=== PATIENT | male | born 1955 | race Caucasian/White ===

== ENCOUNTER 2019-05-30 16:28 | Emergency (ER) | payer OTHER ==
[~2019-05-30] VITALS: Ht 190.5 cm; Wt 118.8 kg
--- NOTE | 2019-05-30 19:50 | NUR ---
PT BROUGHT TO RM 3 AT THIS TIME. PT PLACED ON BEDSIDE WELDER GAS AUT[employer]IC, SPO2 AND BP CUFF. PT DENIES CP OR SOB AT THIS TIME. NO ACUTE DISTRESS NOTED. PT PLACED IN GOWN. BED IS LOCKED AND LOWEST POSITION. CALL LIGHT IN REACH IF IN NEED OF ASSISTANCE.
[2019-05-30] MEDS ORDERED: LISINOPRIL40 MG PO (20:03)
[2019-05-30] MEDS ORDERED: HYDROCODON-ACE1 EAC9 PO (20:03)
[2019-05-30] MEDS ORDERED: ESZOPICLONE3 MG PO (20:03)
[2019-05-30] MEDS ORDERED: AMLODIPINE BESY10 MG PO (20:03)
[2019-05-30] MEDS ORDERED: DOXAZOSIN MESYLA2 MG PO (20:03)
[2019-05-30] MEDS ORDERED: ALPRAZOLAM0.5 MG PO (20:03)
[2019-05-30] MEDS ORDERED: BUPROPION HCL150 M2 PO (20:03)
[2019-05-30] MEDS ORDERED: SUCRALFATE1 GM PO (20:03)
[2019-05-30] MEDS ORDERED: PANTOPRAZOLE SO40 MG PO (20:03)
[2019-05-30] MEDS ORDERED: PREGABALIN100 MG PO (20:03)
[2019-05-30] MEDS ORDERED: METOPROLOL SUC100 MG PO (20:03)
[2019-05-30] MEDS ORDERED: PRAVASTATIN SOD40 MG PO (20:03)
[2019-05-30 20:48] LABS: BASOPHILS # (AUTO) 0.1 (0.0-0.1); BASOPHILS % 0.8 % (0.0-1.0); EOSINOPHILS # (AUTO) 0.4 (0.0-0.4); EOSINOPHILS % 5.5 % (0.0-6.0); HEMATOCRIT 37.3 % (38.2-49.6); HEMOGLOBIN 12.3 g/dL (14.0-18.0); LYMPHOCYTES # (AUTO) 1.9 (1.0-3.2); LYMPHOCYTES % 26.1 % (18.0-39.1); MEAN CORPUSCULAR HEMOGLOBIN 28.9 pg (28-32); MEAN CORPUSCULAR VOLUME 87.6 fL (81-99); MONOCYTES # (AUTO) 0.6 (0.2-0.8); MONOCYTES % 8.4 % (4.4-11.3); NEUTROPHILS # (AUTO) 4.2 (2.1-6.9); NEUTROPHILS % 58.6 % (38.7-80.0); PLATELET COUNT 204 x10e3/uL (140-360); RED BLOOD COUNT 4.26 x10e6/uL (4.3-5.7); RED CELL DISTRIBUTION WIDTH 13.5 % (11.7-14.4)
--- NOTE | 2019-05-30 21:10 | NUR ---
PHOTOVOLTAIC TESTING TECHNICIAN AT BEDSIDE AT THIS TIME FOR VENOUS DOPPLER.
[2019-05-30 21:11] LABS: ALANINE AMINOTRANSFERASE 20 IU/L (0-55); ALBUMIN 4.1 g/dL (3.5-5.0); ALBUMIN/GLOBULIN RATIO 1.2 (0.8-2.0); ALKALINE PHOSPHATASE 96 IU/L (40-150); ANION GAP 10.5 mmol/L (8-16); BLOOD UREA NITROGEN 17 mg/dL (7-26); BUN/CREATININE RATIO 16 (6-25); CALCIUM 9.4 mg/dL (8.4-10.2); CARBON DIOXIDE 29 mmol/L (22-29); CHLORIDE 104 mmol/L (98-107); CREATINE KINASE 75 IU/L (30-200); CREATININE, SERUM 1.05 mg/dL (0.72-1.25); EST GLOMERULAR FILTRATION RATE > 60 ML/MIN (60-); GLUCOSE 85 mg/dL (74-118); POTASSIUM 3.5 mmol/L (3.5-5.1); SODIUM 140 mmol/L (136-145)
[2019-05-30] MEDS ORDERED: SODIUM CHLORIDE 0.9% 50ML 0 ML ONE (21:28)
[2019-05-30] MEDS ORDERED: IOPAMIDOL 370 MG/ML 200 ML INFUS..BTL INJ ONE ×2 (21:29→22:35)
--- NOTE | 2019-05-30 22:08 | Diagnostic Imaging Report ---
EXAM: CT Chest WITH contrast- Pulmonary Embolism Protocol INDICATION: Shortness of breath. Leg swelling bilaterally. COMPARISON: None TECHNIQUE: Chest was scanned utilizing a multidetector helical scanner from the lung apex through the level of the diaphragm after administration of IV contrast. Thin section reconstructions were obtained with special concentration on the pulmonary arteries. Coronal and sagittal reformations were obtained. Pulmonary embolism protocol was performed. IV CONTRAST: 100 cc of Isovue 370 RADIATION DOSE: Total DLP: 659.8 mGy*cm Dose modulation, iterative reconstruction, and/or weight based adjustment of the mA/kV was utilized to reduce the radiation dose to as low as reasonably achievable. COMPLICATIONS: None FINDINGS: LINES/ TUBES: None. PULMONARY ARTERIES: No filling defect is identified within the pulmonary arteries to the segmental level. The subsegmental pulmonary arteries are not well opacified. Main pulmonary artery measures 2.8 cm in diameter. LUNGS AND AIRWAYS: The central airways are patent. Patchy opacities in the lower lobes, likely atelectasis. Mild biapical pleural-parenchymal opacity. A 4 mm triangular right minor fissural nodule on series 3, image 74, likely an intrafissural lymph node. PLEURA: Small bilateral pleural effusions. No pneumothorax. HEART AND MEDIASTINUM: The thyroid gland is normal. Prominent mediastinal lymph nodes including a 0.9 cm paratracheal lymph node on series 2, image 40, a 1.3 cm paratracheal lymph node on image 56, a right peribronchial lymph node, measuring up to 1.4 cm on image 65, and a right supraclavicular lymph nodes node, measuring up to 1.1 cm on image 12, The heart is normal in size.. There is no pericardial effusion. Mitral annular calcifications. Scattered coronary atherosclerosis. UPPER ABDOMEN: Limited contrast-enhanced views of the upper abdomen. Reflux of contrast into the IVC, which may represent right heart dysfunction. BONES: No acute osseous abnormality. No suspicious lytic or blastic lesions. SOFT TISSUES: Unremarkable. IMPRESSION: No evidence of pulmonary embolism to level of the segmental pulmonary arteries. Mild lymphadenopathy as above, indeterminate, but may be reactive. Recommend clinical correlation. Follow-up chest CT is suggested in 3 months. Small bilateral pleural effusions with dependent patchy opacities, likely atelectasis. Signed by: Dr. Nikolas Pagan MD on 05/30/2019 10:05 PM
[2019-05-30] MEDS ORDERED: SODIUM CHLORIDE 0.9% 50ML 50 ML ONE (22:35)
--- NOTE | 2019-05-30 22:49 | History and Physical ---
HISTORY OF PRESENT ILLNESS: Mr. Chen is a complex 63-year-old man, who is sent from my office today with complaints of ankle edema, shortness of breath, and chest discomfort. He had been seen in my office 1 week earlier for preop cardiac evaluation and was felt to be doing fine. However, in the interim week, he has noticed some bilateral ankle edema, some shortness of breath on exertion, and fleeting and irregular chest discomfort. 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 Martin to consider excisional biopsy. PAST MEDICAL HISTORY: Significant for hypertension, hiatal hernia diagnosed before 2004, rheumatic fever in 1963, abnormal sleep study in April of 2019 with initiation of CPAP and nerve conduction studies done in April 2019, suggesting bilateral carpal tunnel disease. PAST SURGICAL HISTORY: He had a colon surgery in 2016. PERSONAL AND SOCIAL HISTORY: The patient started smoking in 1973, and stopped in 2003, do not drink alcohol. CURRENT MEDICATIONS: At home include lisinopril 40 mg daily, bupropion ER 174 mg once daily, pravastatin 40 mg daily, alprazolam 0.5 mg three times a day, Pantoprazole 40 mg daily, Carafate 1 g at bedtime and twice a day, Hahira 10/325 as needed every 6 hours, metoprolol succinate ER 100 mg two tablets daily, doxazosin 2 mg once a day, Lyrica 100 mg 2-3 times a day. ALLERGIES: HE HAS NO KNOWN ALLERGIES. PHYSICAL EXAMINATION: GENERAL: At this time shows a white male, who is alert and responsive. VITAL SIGNS: He is 6 feet 3 inches tall, weighing 263 pounds, blood pressure 156/80. HEAD, EYES, EARS, NOSE, and THROAT: Unremarkable. NECK: No jugular venous distention. THORAX: Heart sounds S1, S2 are equal. No murmurs. LUNGS: Clear. ABDOMEN: Protuberant. Normal bowel sounds. Nontender. EXTREMITIES: No cyanosis or clubbing. There is 1+ bilateral ankle edema. ADDENDUM: The patient attempted stress test today, but became short of breath after about 1.5 minutes of walking without ST changes. ASSESSMENT: 1. Ankle edema with shortness of breath and chest discomfort. This may represent deep venous thrombosis and pulmonary embolus. 2. Recent diagnosis of presumed renal carcinoma. 3. Hypertension. 4. Gastroesophageal reflux. 5. Sleep apnea. PLAN: We will continue regular medications and check venous Doppler scan of the legs and a V/Q scan. I will ask for further evaluation by Dr. Dalton Martin for possible renal carcinoma and further management based on clinical course. MD CHIO Ng/[email or web address] /[id number] cc: MD Carlos Person MD Mohammed A Quraishi, MD
[2019-05-31] MEDS ORDERED: ALBUTEROL/IPRATROPIUM 3 ML NEB NEB ONE (02:15)
[2019-05-31] MEDS ORDERED: FUROSEMIDE INJ 10 MG/ML 4 ML VIAL IV ONE (02:15)
[2019-05-31] MEDS ORDERED: FUROSEMIDE INJ 10 MG/ML 4 ML VIAL ONE (02:17)
--- NOTE | 2019-05-31 04:30 | NUR ---
AMBULATED PT DOWN HALLWAY. PT DENIES CP OR SOB AT THIS TIME. RESP EVEN/UNLABORED. O2 SAT 95% RA, HR 60. NAD NOTED AT THIS TIME. ER MD NOTIFIED AND AWARE OF PT'S STATUS. ER MD VERBALIZED PT IS STABLE FOR D/C.
[2019-05-31 04:41] VITALS: BP 167/78
== END 2019-05-31 05:13 | disposition home or self-care (01) ==
LOC: ER 16:28
DX: R60.0 Localized edema (principal); R07.9 Chest pain, unspecified; R06.02 Shortness of breath; R00.1 Bradycardia, unspecified; I10 Essential (primary) hypertension; K44.9 Diaphragmatic hernia without obstruction or gangrene; K21.9 Gastro-esophageal reflux disease without esophagitis; G47.30 Sleep apnea, unspecified; C64.2 Malignant neoplasm of left kidney, except renal pelvis; Z87.891 Personal history of nicotine dependence
CPT/HCPCS: 36415; 71260; 80053; 82550; 82553; 83880; 84484; 85025; 93005; 93970; 94640; 99284; J1940; Q9967

== ENCOUNTER → 2020-03-07 | Outpatient (CLI) | payer OTHER ==
[~2020-03-07] MED LIST: ALPRAZOLAM0.5 MG PO; AMLODIPINE BESY10 MG PO; BUPROPION HCL150 M2 PO; COLACE100 MG PO; DOXAZOSIN MESYLA2 MG PO; ESZOPICLONE3 MG PO; HYDROCODON-ACE1 EAC9 PO; LISINOPRIL40 MG PO; METOPROLOL SUC100 MG PO; PANTOPRAZOLE SO40 MG PO; PRAVASTATIN SOD40 MG PO; PREGABALIN100 MG PO; SUCRALFATE1 GM PO; TYLENOL WITH C1 EACH PO; VASCEPA1 GM PO; VIT D PO
== END ==
LOC: US 12:41
PROVIDERS: ATTEND Urology
DX: N28.1 Cyst of kidney, acquired (principal); D41.02 Neoplasm of uncertain behavior of left kidney
CPT/HCPCS: 76770